=== PATIENT | male | born 1975 ===

== ENCOUNTER 2017-04-22 12:25 | Emergency (ER) | payer OTHER ==
[2017-04-22] MEDS ORDERED: Sodium Chloride 0.9% 1,000 ML IV STA (12:36)
[2017-04-22] MEDS ORDERED: Thiamine 100 mg/ml Inj IM ONE (12:37)
[2017-04-22 12:39] VITALS: RESP 16; O2SAT 97
[2017-04-22] MEDS ORDERED: Thiamine 100 mg/ml Inj ONE (12:55)
--- NOTE | 2017-04-22 12:59 | RAD ---
HISTORY: SOB COMPARISON: 05/29/2016 FINDINGS: LUNGS: No active pulmonary disease. PLEURA: No significant pleural effusion identified, no pneumothorax apparent. CARDIOVASCULAR: Normal. OSSEOUS STRUCTURES: No significant abnormalities. VISUALIZED UPPER ABDOMEN: Normal. OTHER FINDINGS: None. IMPRESSION: No active disease. No interval pathology noted
[2017-04-22 13:17] LABS: BASO # 0.1 K/uL (0.0-0.2); EOS # 0.2 K/uL (0.0-0.7); EOS % 3.3 % (0.0-4.0); HEMOGLOBIN 14.5 g/dL (12.0-18.0); LYMPH # 1.4 K/uL (1.0-4.3); LYMPH % 19.6 % (20.0-40.0); MEAN CELL VOLUME 94.9 fl (80.0-94.0); MEAN CORPUSCULAR HEMOGLOBIN 31.8 pg (27.0-31.0); MEAN CORPUSCULAR HGB CONC 33.5 g/dL (33.0-37.0); MEAN PLATELET VOLUME 7.1 fl (7.2-11.7); MONO # 0.5 K/uL (0.0-0.8); MONO % 6.7 % (0.0-10.0); NEUT % 69.4 % (50.0-75.0); NRBC % 0.1 % (0.0-0.0); RBC 4.56 Mil/uL (4.40-5.90); RED CELL DISTRIBUTION WIDTH 13.6 % (11.5-14.5); WHITE BLOOD COUNT 7.2 K/uL (4.8-10.8)
[2017-04-22 13:25] LABS: SQUAMOUS EPITHIAL 1 /hpf (0-5); URINE BILIRUBIN NEGATIVE (NEGATIVE); URINE BLOOD MODERATE (NEGATIVE); URINE CLARITY CLOUDY (Clear); URINE COLOR YELLOW (YELLOW); URINE GLUCOSE (UA) NEG (Normal); URINE LEUKOCYTE ESTERASE NEG Leu/uL (Negative); URINE NITRATE NEGATIVE (NEGATIVE); URINE PROTEIN 100 mg/dL (NEGATIVE); URINE UROBILINOGEN 0.2-1.0 mg/dL (0.2-1.0)
[2017-04-22 13:30] LABS: PROTHROMBIN TIME 10.7 Seconds (9.8-13.1)
[2017-04-22 13:39] LABS: ALT/SGPT 36 U/L (21-72); AST/SGOT 37 U/L (17-59); BLOOD UREA NITROGEN 10 mg/dl (9-20); CALCIUM 9.5 mg/dL (8.4-10.2); GFR AFRICAN-AMERICAN > 60; GFR NON-AFRICAN AMERICAN > 60
[2017-04-22 13:54] LABS: ALB/GLOB RATIO 1.4 (1.0-2.1)
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
[2017-04-22 17:20] VITALS: BP 134/68; PULSE 88; TEMP 98
--- NOTE | 2017-04-23 14:33 | CARD ---
APPROVED REPORT EKG Measurement Heart [id number] CT 110P [id number] <Conclusion> Sinus Rhythm Significant baseline artifacts Abnormal ECG
== END 2017-04-22 17:20 | disposition home or self-care (01) ==
LOC: H.ER 12:25
DX: F10.239 Alcohol dependence with withdrawal, unspecified (principal); R07.89 Other chest pain
CPT/HCPCS: 71045; 80053; 80320; 81003; 82948; 83735; 84484; 85025; 85610; 85730; 93005; 96372; 96374; 96376; 99285; J2060; J3411; J7040

== ENCOUNTER 2017-09-27 02:33 | Emergency (ER) | payer OTHER ==
[2017-09-27] MEDS ORDERED: Multivitamin (MVI) 10 ML, Folic Acid 1 MG, Thiamine 100 MG in Dextrose 5%/0.45% NS 1,00... IV ONE (03:00)
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
[2017-09-27 03:25] LABS: BASO # 0.1 K/uL (0.0-0.2); BASO % 1.1 % (0.0-2.0); EOS # 0.3 K/uL (0.0-0.7); EOS % 4.8 % (0.0-4.0); HEMOGLOBIN 14.4 g/dL (12.0-18.0); LYMPH # 1.2 K/uL (1.0-4.3); MEAN CELL VOLUME 93.6 fl (80.0-94.0); MEAN CORPUSCULAR HEMOGLOBIN 32.6 pg (27.0-31.0); MEAN CORPUSCULAR HGB CONC 34.8 g/dL (33.0-37.0); MEAN PLATELET VOLUME 7.8 fl (7.2-11.7); MONO # 0.6 K/uL (0.0-0.8); MONO % 10.9 % (0.0-10.0); NEUT # 3.2 K/uL (1.8-7.0); NEUT % 61.2 % (50.0-75.0); NRBC % 0.1 % (0.0-0.0); RBC 4.41 Mil/uL (4.40-5.90); WHITE BLOOD COUNT 5.3 K/uL (4.8-10.8)
[2017-09-27 03:35] LABS: ALB/GLOB RATIO 1.3 (1.0-2.1); ALT/SGPT 38 U/L (21-72); AST/SGOT 66 U/L (17-59); BLOOD UREA NITROGEN 13 mg/dl (9-20); CALCIUM 9.3 mg/dL (8.4-10.2); GFR AFRICAN-AMERICAN > 60; GFR NON-AFRICAN AMERICAN > 60
--- NOTE | 2017-09-27 07:04 | ED PDOC ---
- Laboratory Results Result Diagrams: 09/27/17 03:13 09/27/17 03:13 - ECG O2 Sat by Pulse Oximetry: 96 (RA) Medical Decision Making Medical Decision Making: Time: 0700 -- Patient endorsed to provider by Dr. Simpson, pending clinical sobriety and crisis evaluation. Scribe Attestation: Documented by Pura Villar, acting as a scribe for Dr. Sherry Wallace MD. Provider Scribe Attestation: All medical record entries made by the Scribe were at my direction and personally dictated by me. I have reviewed the chart and agree that the record accurately reflects my personal performance of the history, physical exam, medical decision making, and the department course for this patient. I have also personally directed, reviewed, and agree with the discharge instructions and disposition. 13.30p - patient has been awake and alert. He has been cooperative. c/o epigastric discomfort and intermittent palpations, all due to effects of heavy alcohol use. Will discharge. Disposition Doctor Will See Patient In The: Office Counseled Patient/Family Regarding: Diagnosis, Need For Followup, Rx Given - Clinical Impression Clinical Impression: Alcohol abuse - POA Present On Arrival: None - Disposition Referrals: [facility] [Outside] [facility] [Outside] Disposition: Routine/Home Disposition Time: 13:34 Condition: IMPROVED Prescriptions: Famotidine [Pepcid] 20 mg PO BID #60 tab hydrOXYzine HCl [Atarax] 25 mg PO Q8H PRN #15 tab PRN Reason: shaking Instructions: Alcohol Abuse and Alcoholism (DC) Forms: [employer] (Maldivian)
--- NOTE | 2017-09-27 11:17 | CARD ---
APPROVED REPORT EKG Measurement Heart [id number] <Conclusion> Sinus tachycardia Otherwise normal ECG
[2017-09-27 11:38] LABS: BARBITURATES, UR NEGATIVE (NEGATIVE); BENZODIAZEPINES, UR NEGATIVE (NEGATIVE); OPIATES, UR NEGATIVE (NEGATIVE); PHENCYCLIDINE, UR NEGATIVE (NEGATIVE)
[2017-09-27 14:06] VITALS: BP 134/82; PULSE 91; RESP 15; TEMP 98.8
[2017-09-28 05:35] VITALS: O2SAT 96
== END 2017-09-27 14:05 | disposition home or self-care (01) ==
LOC: H.ER 02:33
DX: F10.129 Alcohol abuse with intoxication, unspecified (principal); R00.2 Palpitations
CPT/HCPCS: 80053; 80320; 80324; 80345; 80346; 80349; 80353; 80358; 80361; 82948; 83992; 85025; 93005; 96360; 96361; 99285; J3411; J7042

== ENCOUNTER 2017-11-19 08:57 | Emergency (ER) | payer OTHER ==
[2017-11-19 09:02] VITALS: BP 110/78; PULSE 76; TEMP 97; O2SAT 97; BMI 28.8
--- NOTE | 2017-11-19 09:41 | ED PDOC ---
HPI: Dental Pain/Injury Time Seen by Provider: 11/19/17 09:05 Chief Complaint (Nursing): Dental Pain Chief Complaint (Provider): Dental Pain History Per: Patient History/Exam Limitations: no limitations Onset/Duration Of Symptoms: Days (x4) Current Symptoms Are (Timing): Still Present Additional Complaint(s): 42 y/o male with no significant PMHx presents to the ED complaining of right molar pain, onset Thursday. Patient states tooth is loose. Patient reports he has been heavily drinking since Thursday for symptom relief. Patient also reports a history of alcohol abuse. Patient states his last drink was at approximately 1 AM. Denies cough, congestion, rhinorrhea, nausea, vomiting, diarrhea, and taking medications for symptom relief. No chest pain, dyspnea, trouble swallowing. No weakness. PMD: No Provider Dentist: No Provider Past Medical History Reviewed: Historical Data, Nursing Documentation, Vital Signs Vital Signs: Last Vital Signs Temp 97 F L 11/19/17 09:01 Pulse 76 11/19/17 09:01 Resp BP 110/78 11/19/17 09:01 Pulse Ox 97 11/19/17 09:01 - Medical History PMH: No Chronic Diseases Denies: Diabetes, Hepatitis, HIV, HTN, Seizures, Sexually Transmitted Disease - Surgical History Surgical History: No Surg Hx - Family History Family History: States: Unknown Family Hx - Social History Alcohol: > 2 Drinks/Day - Home Medications Home Medications: Ambulatory Orders Medication Instructions Recorded Famotidine [Pepcid] 20 mg PO BID #60 tab 09/27/17 hydrOXYzine HCl [Atarax] 25 mg PO Q8H PRN #15 tab 09/27/17 Clindamycin [Cleocin] 300 mg PO QID 7 Days cap 11/19/17 Ibuprofen [Motrin] 600 mg PO TID 7 Days tab 11/19/17 - Allergies Allergies/Adverse Reactions: Allergies Allergy/AdvReac Type Severity Reaction Status Date / Time No Known Allergies Allergy Verified 11/19/17 09:08 Review of Systems Constitutional: Negative for: Weakness ENT: Positive for: Other (Dental Pain). Negative for: Nose Discharge, Nose Congestion Respiratory: Negative for: Cough Gastrointestinal: Negative for: Nausea, Vomiting, Diarrhea Neurological: Negative for: Weakness Physical Exam - Reviewed Nursing Documentation Reviewed: Yes Vital Signs Reviewed: Yes - Physical Exam Appears: Positive for: Non-toxic, No Acute Distress Head Exam: Positive for: ATRAUMATIC Skin: Positive for: Normal Color, Warm, Dry Eye Exam: Positive for: Normal appearance ENT: Positive for: Other (Mild tenderness to the last molar right lower. Mildly poor hygiene; no abscess, induration, fluctuance.). Negative for: Nasal Congestion, Pharyngeal Erythema Neck: Positive for: Normal Cardiovascular/Chest: Positive for: Regular Rate, Rhythm. Negative for: Bradycardia, Tachycardia Respiratory: Positive for: Normal Breath Sounds. Negative for: Accessory Muscle Use, Respiratory Distress Extremity: Positive for: Normal ROM. Negative for: Deformity Neurologic/Psych: Positive for: Alert, nuclear operations specialist II-XII, Oriented. Negative for: Motor/Sensory Deficits - ECG O2 Sat by Pulse Oximetry: 97 (RA) Pulse Ox Interpretation: Normal - Progress ED Course And Treament: 1000: Stable. Tolerated PO. FU with pcp and dentist. AAOx3. Medical Decision Making Medical Decision Making: Time: 917 Plan: -- Toradol 15 mg IM Scribe Attestation: Documented by Erin Lin acting as a scribe for Dr. Hunter Chanel MD. Provider Scribe Attestation: All medical record entries made by the Scribe were at my direction and personally dictated by me. I have reviewed the chart and agree that the record accurately reflects my personal performance of the history, physical exam, medical decision making, and the department course for this patient. I have also personally directed, reviewed, and agree with the discharge instructions and disposition. Disposition - Clinical Impression Clinical Impression: Toothache - Disposition Referrals: [facility] [Outside] - 11/20/17 Disposition Time: 10:13 Condition: STABLE Additional Instructions: [facility], Division of Oral Medicine (DS) Contact Information: [address] [place] [phone] . [phone] See the dentist without fail in 3 days. Prescriptions: Clindamycin [Cleocin] 300 mg PO QID 7 Days cap Ibuprofen [Motrin] 600 mg PO TID 7 Days tab Instructions: Dental Pain (DC) Forms: [employer] [facility] (Jordanian)
== END 2017-11-19 09:55 | disposition home or self-care (01) ==
LOC: H.ER 08:57
DX: K08.89 Other specified disorders of teeth and supporting structures (principal)
CPT/HCPCS: 96372; 99283; J1885